=== PATIENT | female | born 1995 | race Caucasian/White ===

== ENCOUNTER → 2016-05-29 | Outpatient (CLI) | payer OTHER ==
[~2016-05-29] MED LIST: CYCL10TA9 PO; DICY10CA26 PO; NAPR550T PO
--- NOTE | 2016-05-30 09:21 | Diagnostic Imaging Report ---
PROCEDURE: MR imaging left lower extremity without contrast. TECHNIQUE: Multiplanar/multisequence noncontrast enhanced MR imaging of the left lower extremity was accomplished. The scan was centered at the area of interest around the midfoot. INDICATION: Left foot pain. FINDINGS: The area of pain is marked at the dorsal aspect of the base of the first metatarsal level. At this location, there is mild bone marrow edema in the adjacent dorsal aspect of the medial cuneiform bone with no bone marrow abnormality in the first metacarpal bone. There is normal alignment. The Lisfranc ligament is intact. The bone marrow signal abnormality within the medial cuneiform is probably related to a mild contusion. There is increased T2 signal abnormality in the marrow along the plantar aspect of the base of the fourth metatarsal which may also relate to a focal contusion. There is no subluxation or dislocation with normal alignment at the tarsal/metatarsal joints. There is, however, flattening of the plantar arch seen. The visualized portions of the plantar fascia in its mid and distal aspects appear unremarkable. Its origin within the hindfoot is outside the field of view. The signal in the muscles and tendons around the midfoot is within normal limits. There is no significant fluid collection or soft tissue lesion identified. IMPRESSION: 1. Small foci of bone marrow signal abnormality in the dorsal aspect of the medial cuneiform and in the base of the fourth metatarsal, likely related to focal contusions. 2. Mild flattening of the plantar arch. Dictated by: Dictated on workstation # [id number]
== END ==
LOC: RAD 17:43
PROVIDERS: ATTEND Orthopaedic Surgery
DX: R93.7 Abnormal findings on diagnostic imaging of other parts of musculoskeletal system (principal); M25.572 Pain in left ankle and joints of left foot